=== PATIENT | female | born 1975 | race Caucasian/White ===

== ENCOUNTER 2024-08-14 08:44 | Emergency (ER) | payer BC ==
[~2024-08-14] VITALS: Ht 165.1 cm; Wt 93.6 kg
[2024-08-14] MEDS ORDERED: VENTOLIN HFA18 GM (09:05)
[2024-08-14 09:28] VITALS: BP 139/71
== END 2024-08-14 09:27 | disposition home or self-care (01) ==
LOC: ED 08:44
DX: S92.354A Nondisplaced fracture of fifth metatarsal bone, right foot, initial encounter for closed fracture (principal); X50.1XXA Overexertion from prolonged static or awkward postures, initial encounter
CPT/HCPCS: 73630; 99283